=== PATIENT | male | born 1990 | race Caucasian/White ===

== ENCOUNTER 2020-03-03 21:17 | Emergency (ER) | payer SELFPAY ==
[~2020-03-03] VITALS: Ht 182.9 cm; Wt 77.3 kg
[2020-03-03 22:13] VITALS: Ht 182.9 cm; Wt 77.3 kg
[2020-03-03] MEDS ORDERED: ZOFRAN ODT4 MG/UDTAB PO (23:05)
[2020-03-03] MEDS ORDERED: BUTALB-APAP-CA1 EACH PO (23:05)
[2020-03-03 23:36] VITALS: BP 125/78
== END 2020-03-03 23:37 | disposition home or self-care (01) ==
LOC: D.ER 21:17
DX: R51 Headache (principal); R11.2 Nausea with vomiting, unspecified; H53.9 Unspecified visual disturbance